=== PATIENT | female | born 2000 | race Caucasian/White ===

== ENCOUNTER 2020-01-11 01:42 | Emergency (ER) | payer BC ==
[~2020-01-11] VITALS: Ht 167.6 cm; Wt 65.0 kg
[~2020-01-11 01:42] MED LIST: LARIN FE PO; LEVSIN0.125 MG PO; LOESTRIN 21 1.51 TAB PO; VENTOLIN H0.09 MG/A1 INH
[2020-01-11 01:50] VITALS: BP 124/864; Ht 167.6 cm; Wt 65.0 kg
== END 2020-01-11 03:18 | disposition home or self-care (01) ==
LOC: ED 01:42
DX: F41.1 Generalized anxiety disorder (principal); G25.81 Restless legs syndrome; J45.909 Unspecified asthma, uncomplicated